=== PATIENT | female | born 1985 | race Caucasian/White ===

== ENCOUNTER 2022-11-25 14:41 | Emergency (ER) | payer OTHER ==
[2022-11-25 15:00] VITALS: BP 128/93; PULSE 103; RESP 20; TEMP 98.9; BMI 17.2
[2022-11-25] MEDS ORDERED: DOXYCYCLINE HYCLATE 100 MG CAPSULE PO ONE ×2 (15:08→15:11)
== END 2022-11-25 15:58 | disposition home or self-care (01) ==
LOC: FER 14:41
DX: R21 Rash and other nonspecific skin eruption (principal); L53.9 Erythematous condition, unspecified; L03.113 Cellulitis of right upper limb; M79.602 Pain in left arm
CPT/HCPCS: 99283-25